=== PATIENT | female | born 1990 | race Caucasian/White ===

== ENCOUNTER 2025-01-09 17:15 | Emergency (ER) | payer SELFPAY ==
[2025-01-09 17:23] VITALS: BP 158/96; PULSE 109; RESP 16; TEMP 36.8; O2SAT 100; BMI 27.4
--- NOTE | 2025-01-09 17:25 | ED_ITS ---
Discharge Plan Disposition Patient Disposition: Home, Self-Care Condition: Good Prescriptions Prescriptions: No Action methylprednisolone [Medrol (Jay)] 4 mg tablets,dose pack See Rx Instructions PO PER PKG DIR Qty: 21 0RF Rx Instructions: PO PER PKG DIR Referrals Follow up/Referrals: Provider,Referral, MD [Primary Care Provider, Medical] - See instructions Activity Restrictions/Add. Instructions Additional Instructions/Restrictions: Please return to the emergency department with any worsening signs or symptoms. Please utilize your steroid cream/ointment once to twice daily until resolution of rash. Please use your antibiotic ointment every 8 hours for 5 days or until resolution of rash, please utilize [id number]-sercous antihistamine medication/allergy medication for itching and other symptomatic relief. Please follow-up with your PCP in the upcoming days/weeks. Clinical Impressions Clinical Impression: Poison latanya dermatitis Instructions Patient Instructions: Contact Dermatitis, DI for Poison Latanya Allergy, DI for Impetigo Print Language Print Language: Jordanian Discharge ED Provider: Amilcar Giron General Adult HPI <CHARLY Latham - Last Filed: 01/09/25 17:42> General Chief complaint: Skin/Abscess/Foreign Body Stated complaint: spot on face and left arm ,painful Time Seen by Provider: 01/09/25 17:20 Mode of Arrival: Ambulatory Source of Information: Patient Limitations: No Limitations History of Present Illness HPI narrative: 34-year-old female presents the emergency department with a 2 to 3-day history of rash on the right side of her face, and left anterior medial upper ar m/humerus region, patient admits to some pain with itching and diffuse pruritus, denies any fever chills chest pain shortness of breath nausea vomiting constipation diarrhea no urinary type symptomatology, patient is a current everyday smoker (vapes), denies any alcohol or drug use, patient has no other relevant past medical history, takes no other medications at home, no other family members have any other similar symptoms or rashes, patient does state that she has some poison latanya , in her yard, and did notice this after she walked her dogs , on the other day. Initial triage vitals unremarkable Please note that above description of symptoms, in this electronic medical record under categorization of recalled from ER triage doctor by RN are reflective of an initial nursing assessment, however, is not reflective of my full history and physical exam that was personally taken and clarified. Consequentially, this preceding description of symptoms, which may include the patient's categorized chief complaint in the EMR, do not reflect my personal clinical impression, and the ultimate description of history of present illness and patient stated complaints should be deferred to this section of the note. Unless stated otherwise or congruent with this section of the note, additional signs, symptoms, or incongruence should be interpreted as inaccurate with my clinical impression. Onset (ago): day(s) Related Data Previous Rx's ?Medication ?Instructions ?Recorded methylprednisolone 4 mg tablets in See Rx Instructions PO PER PKG DIR 06/26/24 a dose pack (Medrol (Jay)) #21 tabs Allergies Allergy/AdvReac Type Severity Reaction Status Date / Time No Known Allergies Allergy Verified 01/09/25 17:26 [facility] <CHARLY Latham - Last Filed: 01/09/25 17:42> [facility] Disclaimer: The information contained in this section may have been updated after the patient was seen, as this information can be updated by other users. Medical History (Updated 01/09/25 @ 17:42 by CHARLY Latham) Tubal Depression Anxiety Family History (Updated 07/24/22 @ 08:01 by Juan Geiger APRN) Other Depression Social History (Updated 06/26/24 @ 09:39 by Tasia Jackson MA) Smoking Status: Current every day smoker tobacco type: e-cigarettes alcohol intake: never substance use type: denies use current occupational status: employed Travel in the last 8 weeks?: None Have you lived/traveled outside [place] in past 30 days?: No Contact w/someone who lives/traveled outside [place] past 30 days?: No Exposure to someone with infectious disease in past 14 days?: No Do you have a fever (greater than 100.4 F or 38 C)?: No Have you tested positive for COVID-19?: No Exposed to someone with COVID-19 in past 14 days?: No Do you have a sore throat?: No Do you have a cough?: No Do you have any weakness?: No Do you have any diarrhea?: No Are you experiencing any unusual bleeding?: No Do you have any muscle aches/pain?: No Do you have any abdominal pain?: No Are you experiencing loss of taste or smell?: No Other Medical History Have you received the Pneumonia Vaccine: No <CHARLY Latham - Last Filed: 01/09/25 17:42> ROS Obtained: Yes All systems reviewed & no additional complaints except as documented Physical Exam <CHARLY Latham - Last Filed: 01/09/25 17:42> General General appearance: alert and in no apparent distress Head Head exam: atraumatic and normocephalic Eye Eye exam: Present PERRL and EOMI ENT ENT exam: Present mucous membranes moist Neck Neck exam: Present normal inspection Chest Chest inspection: Present normal inspection and symmetric chest wall rise Respiratory Respiratory exam: Present normal lung sounds bilaterally; Absent respiratory distress Cardiovascular Cardiovascular exam: Present regular rate and normal rhythm Abdominal Exam Abdominal exam: Present soft; Absent tenderness Extremities Exam Extremities exam: Present normal inspection Neurological Exam Neurological exam: Present alert and oriented X3 Psychiatric Psychiatric exam: Present normal affect Skin Skin exam: Present warm, dry, rash and other (Vesicular bullous rash on the patient's right side of her face/cheek, as well as left anterior medial upper arm, blanchable on that area, no obvious erythema, or drainage.) Medical Decision Making <CHARLY Latham - Last Filed: 01/09/25 17:42> Medical Records Medical records reviewed: Yes I reviewed the patient's medical records. Screening: Per USPSTF and CDC recommendations, given the prevalence of disease in our region, it is our hospital?s policy to screen for HIV and viral Hepatitis for all patients aged 18 and over and those with ongoing risk factors. Shaq Inquiry Pt receiving controlled substance: No Shaq was queried for this patient: No Vital Signs: 01/09/25 17:23 Temperature 98.3 F Temperature Source Oral Pulse Rate [Right Brachial] 109 H Respiratory Rate 16 Blood Pressure [Right Arm] 158/96 H Blood Pressure Mean [Right Arm] 116 Blood Pressure Source [Right Arm] Automatic Cuff Blood Pressure Position [Right Arm] Sitting 02 Sat by Pulse Oximetry 100 Oxygen Delivery Method Room Air Orders (Tests/Meds): ED MEDICATIONS Discontinued Medications Generic Name Dose Route Start Last Admin Trade Name Freq PRN Reason Stop Dose Admin Clobetasol Propionate 15 gm 01/09/25 17:33 Clobetasol Prop 0.05% Cream 15gm Tube TP 01/09/25 17:34 ONCE ONE Mupirocin 22 gm 01/09/25 17:32 Mupirocin 2% Ointment 22gm Tube TP 01/09/25 17:33 BID ONE Medical Decision Narrative: 34-year-old female presents the emergency department with a rash that she noticed 2 to 3 days ago, differential diagnose include but not limited to Atopic dermatitis, contact dermatitis,urshaoil dermatitis, impetigo, cellulitis among others. I discussed this patient's case with the attending physician Dr. Giron Patient has no other systemic signs or symptoms, does have known potential poison latanya exposure several days ago, patient mainly complains of pruritus, no known insect bites or exposures, will treat the patient with mupirocin topical ointment every 8 for 5 days or until resolution of the patient's rash, as well as clobetasol 0.05% daily/twice daily until resolution of the rash. Patient was also instructed to use [id number] antihistamines as needed for symptomatic relief. Patient was given strict return precautions. Patient voiced understanding and agreement with current treatment plan/discharge plan. Patient will follow-up with PCP in the upcoming days/weeks. <Amilcar Giron MD - Last Filed: 01/09/25 17:43> Vital Signs: 01/09/25 17:23 Temperature 98.3 F Temperature Source Oral Pulse Rate [Right Brachial] 109 H Respiratory Rate 16 Blood Pressure [Right Arm] 158/96 H Blood Pressure Mean [Right Arm] 116 Blood Pressure Source [Right Arm] Automatic Cuff Blood Pressure Position [Right Arm] Sitting 02 Sat by Pulse Oximetry 100 Oxygen Delivery Method Room Air Orders (Tests/Meds): ED MEDICATIONS Discontinued Medications Generic Name Dose Route Start Last Admin Trade Name Freq PRN Reason Stop Dose Admin Clobetasol Propionate 15 gm 01/09/25 17:33 Clobetasol Prop 0.05% Cream 15gm Tube TP 01/09/25 17:34 ONCE ONE Mupirocin 22 gm 01/09/25 17:32 Mupirocin 2% Ointment 22gm Tube TP 01/09/25 17:33 BID ONE Medical Decision Narrative: 34-year-old female presents the emergency department with a rash that she noticed 2 to 3 days ago, differential diagnose include but not limited to Atopic dermatitis, contact dermatitis,urshaoil dermatitis, impetigo, cellulitis among others. I discussed this patient's case with the attending physician Dr. Giron Patient has no other systemic signs or symptoms, does have known potential poison latanya exposure several days ago, patient mainly complains of pruritus, no known insect bites or exposures, will treat the patient with mupirocin topical ointment every 8 for 5 days or until resolution of the patient's rash, as well as clobetasol 0.05% daily/twice daily until resolution of the rash. Patient was also instructed to use [id number] antihistamines as needed for symptomatic relief. Patient was given strict return precautions. Patient voiced understanding and agreement with current treatment plan/discharge plan. Patient will follow-up with PCP in the upcoming days/weeks. Amilcar Giron MD: I was consulted by the CHRISTIANA, and we discussed the complexity of the problems being addressed. I approved the treatment and management plan for this patient's care in the emergency department, thus performing a substantive portion of the medical decision making. Critical Care <CHARLY Latham - Last Filed: 01/09/25 17:42> Critical Care Time Critical Care Time: No
[2025-01-09 17:47] VITALS: BP 130/80; PULSE 84; RESP 18; TEMP 36.6; O2SAT 98
[2025-01-09] MEDS: MUPIROCIN 2% OINTMENT 22GM TUBE 22 GM TP (17:52)
== END 2025-01-09 17:54 | disposition home or self-care (01) ==
PROVIDERS: Emergency Provider Emergency Medicine
DX: L23.7 Allergic contact dermatitis due to plants, except food (principal); W60.XXXA Contact with nonvenomous plant thorns and spines and sharp leaves, initial encounter
CPT/HCPCS: 99282; 99283